=== PATIENT | male | born 1960 | race American Indian/Alaskan Native ===

== ENCOUNTER 2020-09-21 12:07 | Emergency (ER) | payer SELFPAY ==
[2020-09-21] MEDS ORDERED: ASPIRIN 325 MG TAB PO ONE (12:11)
--- NOTE | 2020-09-21 12:18 | Event Note ---
ED Screening Note ED Screening Note: Patient presents to the emergency room complaints of left-sided chest pain under the left chest that began last night pt states it is intermittent sharp stabbing pain Tremors to the bilateral hands He is a daily alcohol drinker, he states he drinks beer He also is a daily smoker, he states that 1 pack lasts him 2 to 3 days Has medical history of hypertension and HLD He reports he also "takes one other medication for his heart" He denies any nausea, vomiting, diarrhea, shortness of breath, diaphoresis This initial assessment/diagnostic orders/clinical plan/treatment(s) is/are subject to change based on patients health status, clinical progression and re- assessment by fellow clinical providers in the ED. Further treatment and workup at subsequent clinical providers discretion. Patient/guardian urged not to elope from the ED as their condition may be serious if not clinically assessed and managed. Initial orders include: cp protocol
[2020-09-21 12:56] VITALS: BP 162/90
--- NOTE | 2020-09-21 13:09 | XRay Report ---
XR chest routine 2V INDICATION / CLINICAL INFORMATION: CP. COMPARISON: None available. FINDINGS: SUPPORT DEVICES: None. HEART /PULMONARY VASCULATURE: No significant abnormality. LUNGS / PLEURA: No significant pulmonary or pleural abnormality. No pneumothorax. ADDITIONAL FINDINGS: No significant additional findings. IMPRESSION: 1. No acute findings. Signer Name: Liam Reddy MD Signed: 09/21/2020 1:05 PM Workstation Name: [id number]
[2020-09-21 13:58] LABS: Albumin 4.1 g/dL (3.9-5); BUN/Creatinine Ratio 13; Blood Urea Nitrogen 10 mg/dL (9-20); Calcium 8.8 mg/dL (8.4-10.2); Hemolysis Index 87
[2020-09-21 14:01] LABS: Hematocrit 41.6 % (35.5-45.6); Hemoglobin 14.4 gm/dl (11.8-15.2); Mean Corpuscular HGB Conc 35 % (32-34); Mean Corpuscular Volume 93 fl (84-94); Platelet Count 157 K/mm3 (140-440); Red Blood Count 4.49 M/mm3 (3.65-5.03); Red Cell Distribution Width 14.3 % (13.2-15.2)
[2020-09-21 14:10] LABS: Alanine Aminotransferase 108 units/L (7-56)
[2020-09-21 15:18] LABS: Promyelocytes # (Manual) 8.9 K/mm3; Total Cells Counted 100
[2020-09-21 15:21] LABS: Poikilocytosis 1+; Target Cells 1+
[2020-09-21 15:22] LABS: Platelet Estimate Consistent w Auto
--- NOTE | 2020-09-21 16:56 | Emergency Department Report ---
ED Chest Pain HPI - General Chief Complaint: Chest Pain Stated Complaint: CHEST PAIN PUI?: No Time Seen by Provider: 09/21/20 12:16 Source: patient Mode of arrival: Ambulatory Limitations: No Limitations - History of Present Illness Initial Comments: Chief complaint: "Pinching pain under my chest." HPI: This is a 68-year-old male with history of hypertension, hyperlipidemia tobacco dependence who presents with since last night. Patient had sharp pinching sensation last less than 1 second. Intermittent throughout the day and night. He only sleeps 2 to 3 hours/day. He drinks Four Gerard alcoholic drink daily. He also drinks energy drinks. 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 He does not have a history of cardiac disease but his doctor encouraged him to take a baby aspirin. MD Complaint: chest pain -: Gradual, Last night Onset: during rest Pain Location: left chest Pain Radiation: none Severity: mild Severity scale (0 -10): 4 Quality: sharp Consistency: intermittent Improves With: nothing Worsens With: nothing Treatments Prior to Arrival: none - Related Data Allergies Allergy/AdvReac Type Severity Reaction Status Date / Time No Known Allergies Allergy Unverified 09/21/20 12:11 Heart Score - HEART Score History: Slightly suspicious EKG: Non-specific Age: 45-65 Risk factors: 1-2 risk factors Troponin: < normal limit HEART Score: 3 - EKG Read Time Time EKG Completed: 12:19 EKG Read Time: 12:23 - Critical Actions Critical Actions: 0-3 pts:0.9-1.7%risk of adverse cardiac event.Candidate for discharge ED Review of Systems ROS: Stated complaint: CHEST PAIN Other details as noted in HPI Comment: All other systems reviewed and negative Constitutional: denies: fever Respiratory: denies: cough, shortness of breath Cardiovascular: chest pain Gastrointestinal: denies: abdominal pain, nausea, vomiting Neurological: denies: headache ED Past Medical Hx - Past Medical History Previous Medical History?: Yes Hx Hypertension: Yes Additional medical history: "heart prob" - Surgical History Past Surgical History?: No - Family History Family history: hypertension - Social History Smoking Status: Current Every Day Smoker Substance Use Type: Alcohol ED Physical Exam - General Limitations: No Limitations General appearance: alert, in no apparent distress - Head Head exam: Present: atraumatic, normocephalic - Eye Eye exam: Present: normal appearance - ENT ENT exam: Present: mucous membranes moist - Neck Neck exam: Present: normal inspection, full ROM - Respiratory Respiratory exam: Present: normal lung sounds bilaterally. Absent: respiratory distress, wheezes, rales, rhonchi - Cardiovascular Cardiovascular Exam: Present: regular rate, normal rhythm, normal heart sounds. Absent: systolic murmur, diastolic murmur, rubs, gallop - GI/Abdominal GI/Abdominal exam: Present: soft, normal bowel sounds. Absent: distended, tenderness, guarding, rebound - Rectal Rectal exam: Present: deferred - Extremities Exam Extremities exam: Present: normal inspection - Neurological Exam Neurological exam: Present: alert, oriented X3 - Psychiatric Psychiatric exam: Present: normal affect, normal mood - Skin Skin exam: Present: warm, dry, intact, normal color. Absent: rash ED Course Vital Signs 09/21/20 12:10 Pulse Rate 107 H Respiratory 20 Rate Blood Pressure 162/90 O2 Sat by Pulse 96 Oximetry ED Medical Decision Making - Lab Data Result diagrams: 09/21/20 12:56 09/21/20 12:56 Abnormal Lab Results 09/21/20 09/21/20 09/21/20 12:56 12:56 12:56 WBC 2.7 L RBC 4.49 Hgb 14.4 Hct 41.6 MCV 93 MCH 32 MCHC 35 H RDW 14.3 Plt Count 157 Lymph % (Auto) Technology Development Intern Add Manual Diff Complete Total Counted 100 Seg Neutrophils % Technology Development Intern Seg Neuts % (Manual) 54.0 Band Neutrophils % 1.0 Lymphocytes % (Manual) 39.0 H Monocytes % (Manual) 3.0 Eosinophils % (Manual) 2.0 Basophils % (Manual) 1.0 Nucleated RBC % Not Reportable Seg Neutrophils # Man 1.5 L Band Neutrophils # 0.0 Lymphocytes # (Manual) 1.1 L Abs React Lymphs (Man) 0.0 Monocytes # (Manual) 0.1 Eosinophils # (Manual) 0.1 Basophils # (Manual) 0.0 Metamyelocytes # 0.0 Myelocytes # 0.0 Promyelocytes # 8.9 Blast Cells # 0.0 WBC Morphology Not Reportable Hypersegmented Neuts Not Reportable Hyposegmented Neuts Not Reportable Hypogranular Neuts Not Reportable Smudge Cells Not Reportable Toxic Granulation Not Reportable Toxic Vacuolation Not Reportable Dohle Bodies Not Reportable Pelger-Huet Anomaly Not Reportable Summer Rods Not Reportable Platelet Estimate Consistent w auto Clumped Platelets Not Reportable Plt Clumps, EDTA Not Reportable Large Platelets Not Reportable Giant Platelets Not Reportable Platelet Satelliting Not Reportable Plt Morphology Comment Not Reportable RBC Morphology Not Reportable Dimorphic RBCs Not Reportable Polychromasia Not Reportable Hypochromasia Not Reportable Poikilocytosis 1+ Anisocytosis Not Reportable Microcytosis Not Reportable Macrocytosis Not Reportable Spherocytes Not Reportable Pappenheimer Bodies Not Reportable Sickle Cells Not Reportable Target Cells 1+ Tear Drop Cells Not Reportable Ovalocytes Not Reportable Helmet Cells Not Reportable Collazo-[place] Bodies Not Reportable [place] Rings Not Reportable Janneth Cells Not Reportable Bite Cells Not Reportable Crenated Cell Not Reportable Elliptocytes Not Reportable Acanthocytes (Spur) Not Reportable Rouleaux Not Reportable Hemoglobin C Crystals Not Reportable Schistocytes Not Reportable Malaria parasites Not Reportable Jeovanny Bodies Not Reportable Hem Pathologist Commnt No Sodium 133 L Potassium 3.7 Chloride 92.6 L Carbon Dioxide 22 Anion Gap 22 BUN 10 Creatinine 0.8 Estimated GFR > 60 BUN/Creatinine Ratio 13 Glucose 112 H Calcium 8.8 Total Bilirubin 0.50 AST 433 H ALT 108 H Alkaline Phosphatase 146 H Troponin T < 0.010 Total Protein 7.8 Albumin 4.1 Albumin/Globulin Ratio 1.1 Lipase 36 - Radiology Data Radiology results: report reviewed [facility] [address] [place] [address] XRay Report Signed Patient: WAN SIDDIQI MR#: [id number] 2013 : 1960 Acct:[id number] Age/Sex: 60 / M ADM Date: 09/21/20 Loc: ED Attending Dr: Ordering Physician: ED MD ENA Date of Service: 09/21/20 Procedure(s): XR chest routine 2V Accession Number(s): [id number] cc: ED MD ENA Fluoro Time In Minutes: XR chest routine 2V INDICATION / CLINICAL INFORMATION: CP. COMPARISON: None available. FINDINGS: SUPPORT DEVICES: None. HEART /PULMONARY VASCULATURE: No significant abnormality. LUNGS / PLEURA: No significant pulmonary or pleural abnormality. No pneumothorax. ADDITIONAL FINDINGS: No significant additional findings. IMPRESSION: 1. No acute findings. Signer Name: Shantell Reddy MD Signed: 09/21/2020 1:05 PM Workstation Name: [id number] Transcribed By: RODNEY Dictated By: SHANTELL REDDY MD Electronically Authenticated By: SHANTELL REDDY MD Signed Date/Time: 09/21/201304 DD/ 04 TD/TT: - Medical Decision Making 1. Chest pain caused by PVCs: Recommended smoking cessation, increased sleep, decreased beer intake. Also recommended decreasing the use of energy drinks. Also encourage hydration with water. Chest pain typical for ACS. Heart score 3. Troponin x2 both negative in value. Referred to [facility]. Also referred to his PCP. He was recently evaluated by nurse suhailitioner in PCPs office 2 weeks ago. 2. Alcoholic liver disease AST ALT ratio concerning. I strongly encourage cessation of alcohol use. Critical care attestation.: If time is entered above; I have spent that time in minutes in the direct care of this critically ill patient, excluding procedure time. ED Disposition Clinical Impression: PVCs (premature ventricular contractions), Alcoholic liver disease Disposition: 01 HOME / SELF CARE / HOMELESS Is pt being admited?: No Does the pt Need Aspirin: No Condition: Stable Instructions: Alcoholic Liver Disease, Premature Ventricular Contraction Referrals: DESTINEE ESTRELLA MD [Staff Physician] - 3-5 Days
--- NOTE | 2020-09-21 17:51 | Electrocardiograph Report ---
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
== END 2020-09-21 17:05 | disposition home or self-care (01) ==
LOC: ED 12:07
DX: I49.3 Ventricular premature depolarization (principal); K70.9 Alcoholic liver disease, unspecified; I10 Essential (primary) hypertension; F17.200 Nicotine dependence, unspecified, uncomplicated; Z79.899 Other long term (current) drug therapy
CPT/HCPCS: 36415; 71046; 80053; 83690; 84484; 85007; 85025; 93005; 99283